=== PATIENT | male | born 1995 | race African-American/Black ===

== ENCOUNTER 2019-07-31 17:00 | Emergency (ER) | payer MEDICAID, OTHER ==
[~2019-07-31] VITALS: Ht 188 cm; Wt 92.9 kg
[2019-07-31 17:26] VITALS: BP 148/71
== END 2019-07-31 19:51 | disposition home or self-care (01) ==
LOC: ED 19:40
DX: K08.89 Other specified disorders of teeth and supporting structures (principal)
CPT/HCPCS: 99283